=== PATIENT | female | born 1985 | race Caucasian/White ===

== ENCOUNTER 2016-03-04 12:18 | Emergency (ER) | payer SELFPAY ==
--- NOTE | 2016-03-04 12:56 | ER Document Report ---
ED Medical Screen (RME) - General Stated Complaint: ABDOMINAL PAIN Mode of Arrival: Ambulatory Information source: Patient Notes: 30-year-old female presents to the emergency department complaining of intermittently persistent upper abdominal pain over the last 2 weeks. Reports associated intermittent nausea. I have greeted and performed a rapid initial assessment of this patient. A comprehensive ED assessment and evaluation of the patient, analysis of test results and completion of the medical decision making process will be conducted by additional ED providers. TRAVEL OUTSIDE OF THE [place] IN LAST 30 DAYS: No - Related Data Allergies/Adverse Reactions: droperidol [Droperidol] Allergy (Intermediate, Verified 03/04/16 12:54) restlessness codeine [Codeine] Allergy (Verified 03/04/16 12:54) metoclopramide HCl [From Reglan] Allergy (Verified 03/04/16 12:54) prochlorperazine edisylate [From Compazine] Allergy (Verified 03/04/16 12:54) prochlorperazine maleate [From Compazine] Allergy (Verified 03/04/16 12:54) narcotics Adverse Reaction (Uncoded 12/09/14 15:13) Past Medical History - Social History Frequency of alcohol use: None Drug Abuse: None Family history: DM, Hypertension - Past Medical History Cardiac Medical History: Reports: Hx Hypertension Renal/ Medical History: Denies: Hx Peritoneal Dialysis Psychiatric Medical History: Reports: Hx Anxiety, Hx Depression - panic disorder Past Surgical History: Reports: Hx Adenoidectomy, Hx Myringotomy, Hx Tonsillectomy - Immunizations Immunizations up to date: No Hx Diphtheria, Pertussis, Tetanus Vaccination: Yes Physical Exam - Vital signs Vitals: Temp Pulse Resp BP Pulse Ox 98.3 F 101 H 21 H 135/74 H 97 03/04/16 12:41 03/04/16 12:41 03/04/16 12:41 03/04/16 12:41 03/04/16 12:41 - General General appearance: Appears well, Alert In distress: None Course - Vital Signs Vital signs: Temp Pulse Resp BP Pulse Ox 98.3 F 101 H 21 H 135/74 H 97 03/04/16 12:41 03/04/16 12:41 03/04/16 12:41 03/04/16 12:41 03/04/16 12:41
[2016-03-04 13:24] LABS: ABSOLUTE MONOCYTES (AUTO) 0.6 10^3/uL (0.1-1.4); ABSOLUTE NEUT (AUTO) 5.6 10^3/uL (1.7-8.2); BASOPHILS % (AUTO) 0.5 % (0-2); EOSINOPHILS % (AUTO) 0.5 % (0-6); LYMPHOCYTES % (AUTO) 24.1 % (13-45); MEAN CORPUSCULAR HEMOGLOBIN 27.4 pg (27.0-33.4); MEAN CORPUSCULAR HGB CONC 33.3 g/dL (32.0-36.0); MEAN CORPUSCULAR VOLUME 82 fl (80-97); RED BLOOD COUNT 4.74 10^6/uL (3.72-5.28); RED CELL DISTRIBUTION WIDTH 13.9 % (11.5-14.0); SEGMENTED NEUTROPHILS % (AUTO) 67.9 % (42-78); WHITE BLOOD COUNT 8.2 10^3/uL (4.0-10.5)
[2016-03-04 13:45] LABS: APPEARANCE,URINE SLIGHTLY-CLOUDY; BILIRUBIN,URINE NEGATIVE (NEGATIVE); GLUCOSE, URINE NEGATIVE (NEGATIVE); KETONES,URINE NEGATIVE (NEGATIVE); LEUKOCYTE ESTERASE,URINE LARGE (NEGATIVE); NITRITE,URINE NEGATIVE (NEGATIVE); PROTEIN,URINE NEGATIVE (NEGATIVE); URINE SPECIFIC GRAVITY 1.004; UROBILINOGEN,URINE NEGATIVE mg/dL (<2.0)
[2016-03-04 13:50] LABS: ALANINE AMINOTRANSFERASE 22 U/L (9-52); ALBUMIN 4.6 g/dL (3.5-5.0); ALKALINE PHOSPHATASE 71 U/L (38-126); ANION GAP 12 (5-19); ASPARTATE AMINO TRANSFERASE 23 U/L (14-36); BILIRUBIN,TOTAL 0.4 mg/dL (0.2-1.3); BLOOD UREA NITROGEN 10 mg/dL (7-20); CALCIUM 10.3 mg/dL (8.4-10.2); CARBON DIOXIDE 27 mmol/L (22-30); CHLORIDE 104 mmol/L (98-107); CREATININE RESULT 0.69 mg/dL (0.52-1.25); GLUCOSE 86 mg/dL (75-110); LIPASE 63.4 U/L (23-300); POTASSIUM 4.7 mmol/L (3.6-5.0); SODIUM 142.6 mmol/L (137-145); TOTAL PROTEIN 7.7 g/dL (6.3-8.2)
--- NOTE | 2016-03-04 14:41 | ER Document Report ---
Doctor's Note Notes: 03/04/16 14:15 Went to see patient in hallway bed. Patient had eloped after being seen in [facility].
--- NOTE | 2016-03-04 15:15 | ER Document Report ---
ED GI/ - General Time seen by provider: 15:30 Mode of Arrival: Ambulatory Information source: Patient TRAVEL OUTSIDE OF THE [place] IN LAST 30 DAYS: No - HPI Patient complains to provider of: Abdominal pain, Vomiting Onset: Other - see HPI Associated symptoms: Nausea, Vomiting, Other - migraine <NOHEMI CHENEY - Last Filed: 03/04/16 18:44> <ANGEL KENNEY - Last Filed: 03/04/16 22:46> - General Chief Complaint: Abdominal Pain Stated Complaint: ABDOMINAL PAIN Notes: Patient is a 30-year-old female presents emergency department with complaints of abdominal pain and nausea. Patient states that about 2 weeks ago she had some nausea and abdominal cramping with loose stool. Patient states that last night her adult pain was exacerbated and she felt very "flushed." Patient states that since she has been in the ER, the patient started vomiting and also has a migraine. Patient states that she has a migraine because she has been crying. Patient is concerned that she has a stomach ulcer. Patient has a history of hypertension, anxiety, and depression. (NOHEMI CHENEY) - Related Data Allergies/Adverse Reactions: droperidol [Droperidol] Allergy (Intermediate, Verified 03/04/16 12:54) restlessness codeine [Codeine] Allergy (Verified 03/04/16 12:54) metoclopramide HCl [From Reglan] Allergy (Verified 03/04/16 12:54) prochlorperazine edisylate [From Compazine] Allergy (Verified 03/04/16 12:54) prochlorperazine maleate [From Compazine] Allergy (Verified 03/04/16 12:54) narcotics Adverse Reaction (Uncoded 12/09/14 15:13) Past Medical History - General Information source: Patient - Social History Smoking Status: Never Smoker Cigarette use (# per day): No Chew tobacco use (# tins/day): No Frequency of alcohol use: None Drug Abuse: None Family History: Reviewed & Not Pertinent, CAD, COPD, DM, Hyperlipidemia, Hypertension Patient has suicidal ideation: No Patient has homicidal ideation: No - Past Medical History Cardiac Medical History: Reports: Hx Hypertension Psychiatric Medical History: Reports: Hx Anxiety, Hx Depression - panic disorder Past Surgical History: Reports: Hx Adenoidectomy, Hx Myringotomy, Hx Tonsillectomy - Immunizations Immunizations up to date: No Hx Diphtheria, Pertussis, Tetanus Vaccination: Yes <NOHEMI CHENEY - Last Filed: 03/04/16 18:44> Review of Systems - Review of Systems Constitutional: No symptoms reported EENT: No symptoms reported Cardiovascular: No symptoms reported Respiratory: No symptoms reported Gastrointestinal: See HPI, Abdominal pain, Diarrhea, Nausea, Vomiting Genitourinary: No symptoms reported Female Genitourinary: No symptoms reported Musculoskeletal: No symptoms reported Skin: No symptoms reported Hematologic/Lymphatic: No symptoms reported Neurological/Psychological: See HPI, Headaches -: Yes All other systems reviewed and negative <NOHEMI CHENEY - Last Filed: 03/04/16 18:44> Physical Exam - Vital signs Interpretation: Normal - General General appearance: Alert In distress: Mild - HEENT Head: Normocephalic, Atraumatic Eyes: Normal Pupils: PERRL Mucous membranes: Dry - Respiratory Respiratory status: No respiratory distress Chest status: Nontender Breath sounds: Normal Chest palpation: Normal - Cardiovascular Rhythm: Regular Heart sounds: Normal auscultation Murmur: No - Abdominal Inspection: Normal Distension: No distension Bowel sounds: Normal Tenderness: Tender - epigastric tenderness to palpation Organomegaly: No organomegaly - Back Back: Normal, Nontender - Extremities General upper extremity: Normal inspection, Normal ROM, Normal strength General lower extremity: Normal inspection, Normal ROM, Normal strength - Neurological Neuro grossly intact: Yes Cognition: Normal Orientation: AAOx4 [place] Coma Scale Eye Opening: Spontaneous Christopher Coma Scale Verbal: Oriented [place] Coma Scale Motor: Obeys Commands [place] Coma Scale Total: 15 Speech: Normal - Psychological Associated symptoms: Normal affect, Anxious, Tearful - Skin Skin Temperature: Warm Skin Moisture: Dry <NOHEMI CHENEY - Last Filed: 03/04/16 18:44> Course - Laboratory Result Diagrams: 03/04/16 13:10 03/04/16 13:10 <NOHEMI CHENEY - Last Filed: 03/04/16 18:44> - Laboratory Result Diagrams: 03/04/16 13:10 03/04/16 13:10 <ANGEL KENNEY - Last Filed: 03/04/16 22:46> - Re-evaluation Re-evalutation: 03/04/16 Patient's headache is improved after medications. A shunt has minimal epigastric tenderness to palpation. Patient only wants to take Tylenol and Zofran. She does not want anything else for pain, headache, or anxiety. Blood work within normal limits. Patient is feeling better like to go home. Will be given a prescription for Carafate. Follow-up with PMD. Return if any worsening or concerning symptoms. (ANGEL KENNEY) - Vital Signs Vital signs: Temp Pulse Resp BP Pulse Ox 97 F L 90 16 121/78 99 03/04/16 18:00 03/04/16 18:00 03/04/16 18:00 03/04/16 18:00 03/04/16 18:00 (NOHEMI CHENEY) (ANGEL KENNEY) - Laboratory Laboratory results interpreted by me: 03/04/16 03/04/16 13:10 13:10 Calcium 10.3 H Ur Leukocyte Esterase LARGE H (NOHEMI CHENEY) (ANGEL KENNEY) Discharge <NOHEMI CHENEY - Last Filed: 03/04/16 18:44> <ANGEL KENNEY - Last Filed: 03/04/16 22:46> - Discharge Clinical Impression: Epigastric pain Headache Qualifiers: Headache type: unspecified Headache chronicity pattern: unspecified pattern Intractability: not intractable Qualified Code(s): R51 - Headache Condition: Stable Disposition: HOME, SELF-CARE Instructions: Evaluation of Upper Abdominal Pain ([facility]), Headache ([facility]) Prescriptions: Ondansetron [Zofran Odt 4 mg Tablet] 4 mg PO Q4HP PRN #30 tab.rapdis PRN Reason: Sucralfate [Carafate 1 gm Tablet] 1 gm PO ACHS #30 tablet Forms: Return to Work Scribe Attestation: 03/04/16 22:46 I personally performed the services described in the documentation, reviewed and edited the documentation which was dictated to the scribe in my presence, and it accurately records my words and actions. (ANGEL KENNEY) Scribe Documentation - Scribe Written by Scribe:: Nohemi Cheney 03/04/16 16:48 acting as scribe for :: Massimo <NOHEMI CHENEY - Last Filed: 03/04/16 18:44>
[2016-03-04] MEDS ORDERED: FAMOTIDINE 20 MG TABLET PO ONE (15:48)
[2016-03-04] MEDS ORDERED: ONDANSETRON HCL INJ/PF 4 MG/2 ML SDV IV ONE (15:48)
[2016-03-04] MEDS ORDERED: ACETAMINOPHEN 325 MG TABLET PO ONE (15:48)
[2016-03-04] MEDS ORDERED: SUCRALFATE 1 GM TABLET PO ONE (15:48)
[2016-03-04] MEDS ORDERED: NORMAL SALINE 1000 ML 1,000 ML IV ONE (15:49)
[2016-03-04] MEDS ORDERED: ACETAMINOPHEN 325 MG TABLET ONE (16:17)
[2016-03-04] MEDS ORDERED: FAMOTIDINE INJ/PF 20 MG/2 ML SDV IV ONE (16:17)
[2016-03-04] MEDS ORDERED: ONDANSETRON HCL INJ/PF 4 MG/2 ML SDV ONE (16:18)
[2016-03-04 18:10] VITALS: BP 121/78
== END 2016-03-04 18:11 | disposition home or self-care (01) ==
LOC: ER 12:18
DX: R10.13 Epigastric pain (principal); R11.2 Nausea with vomiting, unspecified; R19.7 Diarrhea, unspecified; G43.909 Migraine, unspecified, not intractable, without status migrainosus; I10 Essential (primary) hypertension; R41.9 Unspecified symptoms and signs involving cognitive functions and awareness; Z88.5 Allergy status to narcotic agent; Z88.8 Allergy status to other drugs, medicaments and biological substances
CPT/HCPCS: 99284; 96361; 96374; 36415; 83690; 85025; 81025; 80053; 81001; J2405; J7030

== ENCOUNTER 2017-02-01 09:00 | Emergency (ER) | payer SELFPAY ==
[2017-02-01] MEDS ORDERED: NORMAL SALINE 1000 ML 1,000 ML IV ONE ×2 (09:46)
[2017-02-01] MEDS ORDERED: ONDANSETRON HCL INJ/PF 4 MG/2 ML SDV IV ONE (09:54)
[2017-02-01] MEDS ORDERED: DICYCLOMINE HCL 20 MG TABLET PO ONE (09:54)
[2017-02-01 10:39] LABS: ABSOLUTE EOSINOPHILS # (AUTO) 0.1 10^3/uL (0.0-0.6); ABSOLUTE LYMPHOCYTES (AUTO) 1.6 10^3/uL (0.5-4.7); ABSOLUTE MONOCYTES (AUTO) 0.4 10^3/uL (0.1-1.4); ABSOLUTE NEUT (AUTO) 3.4 10^3/uL (1.7-8.2); BASOPHILS % (AUTO) 0.7 % (0-2); EOSINOPHILS % (AUTO) 1.1 % (0-6); HEMATOCRIT 37.7 % (36.0-47.0); HEMOGLOBIN 12.7 g/dL (12.0-15.5); HGB HCT DIFFERENCE 0.4; LYMPHOCYTES % (AUTO) 29.5 % (13-45); MEAN CORPUSCULAR HEMOGLOBIN 27.5 pg (27.0-33.4); MEAN CORPUSCULAR HGB CONC 33.7 g/dL (32.0-36.0); MEAN CORPUSCULAR VOLUME 82 fl (80-97); MONOCYTES % (AUTO) 7.1 % (3-13); RED BLOOD COUNT 4.62 10^6/uL (3.72-5.28); RED CELL DISTRIBUTION WIDTH 13.9 % (11.5-14.0); SEGMENTED NEUTROPHILS % (AUTO) 61.6 % (42-78); WHITE BLOOD COUNT 5.5 10^3/uL (4.0-10.5)
[2017-02-01 11:03] LABS: ALANINE AMINOTRANSFERASE 25 U/L (9-52); ALBUMIN 4.5 g/dL (3.5-5.0); ALKALINE PHOSPHATASE 74 U/L (38-126); ANION GAP 12 (5-19); ASPARTATE AMINO TRANSFERASE 19 U/L (14-36); BILIRUBIN,DIRECT 0.2 mg/dL (0.0-0.4); BILIRUBIN,TOTAL 0.2 mg/dL (0.2-1.3); BLOOD UREA NITROGEN 8 mg/dL (7-20); CALCIUM 10.2 mg/dL (8.4-10.2); CARBON DIOXIDE 25 mmol/L (22-30); CHLORIDE 105 mmol/L (98-107); CREATININE RESULT 0.65 mg/dL (0.52-1.25); GLUCOSE 99 mg/dL (75-110); LIPASE 87.5 U/L (23-300); POTASSIUM 4.7 mmol/L (3.6-5.0); SODIUM 141.5 mmol/L (137-145); TOTAL PROTEIN 7.3 g/dL (6.3-8.2)
[2017-02-01 11:25] LABS: APPEARANCE,URINE SLIGHTLY-CLOUDY; BILIRUBIN,URINE NEGATIVE (NEGATIVE); GLUCOSE, URINE NEGATIVE (NEGATIVE); KETONES,URINE NEGATIVE (NEGATIVE); LEUKOCYTE ESTERASE,URINE TRACE (NEGATIVE); NITRITE,URINE NEGATIVE (NEGATIVE); PROTEIN,URINE NEGATIVE (NEGATIVE); URINE SPECIFIC GRAVITY 1.012; UROBILINOGEN,URINE NEGATIVE mg/dL (<2.0)
--- NOTE | 2017-02-01 11:45 | ER Document Report ---
ED General - General Chief Complaint: Abdominal Pain Stated Complaint: ABDOMINAL PAIN Time Seen by Provider: 02/01/17 09:45 TRAVEL OUTSIDE OF THE [place] IN LAST 30 DAYS: No - HPI Patient complains to provider of: Abdominal pain Notes: Patient coming in for evaluation of abdominal pain. Patient states last few days she had nausea vomiting diarrhea was getting over the GI bug states that she was able to tolerate paige [employer] ice cream then progressed to eat a piece last night when she developed more abdominal pain. Patient otherwise resting comfortably upon my evaluation patient is unaware of her status. Patient denies any recent travel denies any recent antibiotics. - Related Data Allergies/Adverse Reactions: droperidol [Droperidol] Allergy (Intermediate, Verified 02/01/17 11:23) restlessness codeine [Codeine] Allergy (Verified 02/01/17 11:23) metoclopramide HCl [From Reglan] Allergy (Verified 02/01/17 11:23) prochlorperazine edisylate [From Compazine] Allergy (Verified 02/01/17 11:23) prochlorperazine maleate [From Compazine] Allergy (Verified 02/01/17 11:23) narcotics Adverse Reaction (Uncoded 02/01/17 11:23) Home Medications: Current Home Medications Diltiazem HCl [Cardizem 30 mg Tablet] 30 mg PO DAILY 02/01/17 [History] Lorazepam [Ativan 1 mg Tablet] 1 mg PO PRN PRN 02/01/17 [History] Sertraline HCl [Zoloft 50 mg Tablet] 50 mg PO DAILY 02/01/17 [History] Past Medical History - Social History Smoking Status: Never Smoker Chew tobacco use (# tins/day): No Frequency of alcohol use: None Drug Abuse: None Family History: Reviewed & Not Pertinent, CAD, COPD, DM, Hyperlipidemia, Hypertension Patient has suicidal ideation: No Patient has homicidal ideation: No - Past Medical History Cardiac Medical History: Reports: Hx Hypertension Renal/ Medical History: Denies: Hx Peritoneal Dialysis Psychiatric Medical History: Reports: Hx Anxiety, Hx Depression - panic disorder Past Surgical History: Reports: Hx Adenoidectomy, Hx Myringotomy, Hx Tonsillectomy - Immunizations Immunizations up to date: No Hx Diphtheria, Pertussis, Tetanus Vaccination: Yes Review of Systems - Review of Systems Constitutional: No symptoms reported EENT: No symptoms reported Cardiovascular: No symptoms reported Respiratory: No symptoms reported Gastrointestinal: Abdominal pain, Diarrhea, Nausea, Vomiting Genitourinary: No symptoms reported Female Genitourinary: No symptoms reported Musculoskeletal: No symptoms reported Skin: No symptoms reported Hematologic/Lymphatic: No symptoms reported Neurological/Psychological: No symptoms reported -: Yes All other systems reviewed and negative Physical Exam - Vital signs Vitals: Temp Pulse Resp BP Pulse Ox 99.3 F 101 H 18 137/79 H 98 02/01/17 09:18 02/01/17 09:18 02/01/17 09:18 02/01/17 09:18 02/01/17 09:18 Interpretation: Normal - General General appearance: Appears well, Alert - HEENT Head: Normocephalic, Atraumatic Eyes: Normal Pupils: PERRL - Respiratory Respiratory status: No respiratory distress Chest status: Nontender Breath sounds: Normal Chest palpation: Normal - Cardiovascular Rhythm: Regular Heart sounds: Normal auscultation Murmur: No - Abdominal Inspection: Normal Distension: No distension Bowel sounds: Normal Tenderness: Nontender Organomegaly: No organomegaly - Back Back: Normal, Nontender - Extremities General upper extremity: Normal inspection, Nontender, Normal color, Normal ROM , Normal temperature General lower extremity: Normal inspection, Nontender, Normal color, Normal ROM , Normal temperature, Normal weight bearing. No: Yamilet's sign - Neurological Neuro grossly intact: Yes Cognition: Normal Orientation: AAOx4 [place] Coma Scale Eye Opening: Spontaneous [place] Coma Scale Verbal: Oriented [place] Coma Scale Motor: Obeys Commands [place] Coma Scale Total: 15 Speech: Normal Motor strength normal: LUE, RUE, LLE, RLE Sensory: Normal - Psychological Associated symptoms: Normal affect, Normal mood - Skin Skin Temperature: Warm Skin Moisture: Dry Skin Color: Normal Course - Re-evaluation Re-evalutation: 02/01/17 11:42 The patient presents with abdominal pain without signs of peritonitis or other life-threatening or serious etiology. The patient appears stable for discharge and has been instructed to return immediately if the symptoms worsen in any way , or in 8-12hr if not improved for re-evaluation. The patient has been instructed to return if the symptoms worsen or change in any way. - Vital Signs Vital signs: Temp Pulse Resp BP Pulse Ox 98.4 F 75 18 132/76 H 100 02/01/17 12:27 02/01/17 12:27 02/01/17 12:27 02/01/17 12:27 02/01/17 12:27 - Laboratory Result Diagrams: 02/01/17 10:15 02/01/17 10:15 Laboratory results interpreted by me: 02/01/17 10:15 Urine Blood SMALL H Ur Leukocyte Esterase TRACE H Discharge - Discharge Clinical Impression: Abdominal pain Qualifiers: Abdominal location: unspecified location Qualified Code(s): R10.9 - Unspecified abdominal pain Condition: Good Disposition: HOME, SELF-CARE Instructions: Abdominal Pain ([facility]), Antispasmodics ([facility]) Additional Instructions: Your laboratory studies and urinalysis did not show any signs of significant infection. More likely the etiology of your abdominal pains due to a virus. I recommend eating a very bland diet for the next few days. Avoid foods high in grease fat or oil content. He may take Tylenol Motrin for pain. I will also prescribe Bentyl for your pain. Take nausea medication as needed for any nausea. Make sure that you are drinking plenty of fluids to stay hydrated return to ER if symptoms worsen or follow-up your primary care physician Prescriptions: Dicyclomine HCl [Bentyl 20 mg Tablet] 20 mg PO QID PRN #40 tablet PRN Reason: Ondansetron [Zofran Odt 4 mg Tablet] 1 - 2 tab PO Q4H PRN #30 tab.rapdis PRN Reason: For Nausea/Vomiting Forms: Return to Work
[2017-02-01 12:27] VITALS: BP 132/76
== END 2017-02-01 12:27 | disposition home or self-care (01) ==
LOC: ER 09:00
DX: R10.9 Unspecified abdominal pain (principal); R11.2 Nausea with vomiting, unspecified; R19.7 Diarrhea, unspecified; Z79.899 Other long term (current) drug therapy
CPT/HCPCS: 99284; 96361; 96374; 36415; 83690; 85025; 81025; 80053; 81001; J3490; J2405; J7030

== ENCOUNTER 2017-03-14 16:22 | Emergency (ER) | payer SELFPAY ==
--- NOTE | 2017-03-14 17:38 | ER Document Report ---
ED Medical Screen (RME) - General Chief Complaint: Chest Pain Stated Complaint: BACK PAIN, SHORNESS OF BREATH Time Seen by Provider: 03/14/17 17:35 Mode of Arrival: Ambulatory Information source: Patient TRAVEL OUTSIDE OF THE [place] IN LAST 30 DAYS: No - HPI Notes: 03/14/17 17:37 Patient complains of chest pain in her left mid chest area that wraps around her back. It is worse with deep inspiration. She denies any trauma to the area. She states it is associated with shortness of breath. She denies any history of blood clots, leg swelling, OR extensive travel in a car plane. She has had no fever nausea vomiting diarrhea or flulike symptoms. - Related Data Allergies/Adverse Reactions: droperidol [Droperidol] Allergy (Intermediate, Verified 02/01/17 11:23) restlessness codeine [Codeine] Allergy (Verified 02/01/17 11:23) metoclopramide HCl [From Reglan] Allergy (Verified 02/01/17 11:23) prochlorperazine edisylate [From Compazine] Allergy (Verified 02/01/17 11:23) prochlorperazine maleate [From Compazine] Allergy (Verified 02/01/17 11:23) narcotics Adverse Reaction (Uncoded 02/01/17 11:23) Past Medical History - Social History Chew tobacco use (# tins/day): No Frequency of alcohol use: None Drug Abuse: None Family history: DM, Hypertension - Past Medical History Cardiac Medical History: Reports: Hx Hypertension Renal/ Medical History: Denies: Hx Peritoneal Dialysis Psychiatric Medical History: Reports: Hx Anxiety, Hx Depression - panic disorder Past Surgical History: Reports: Hx Adenoidectomy, Hx Myringotomy, Hx Tonsillectomy - Immunizations Immunizations up to date: No Hx Diphtheria, Pertussis, Tetanus Vaccination: Yes Physical Exam - Vital signs Vitals: Temp Pulse Resp BP Pulse Ox 98.6 F 85 18 133/74 H 96 03/14/17 16:46 03/14/17 16:46 03/14/17 16:46 03/14/17 16:46 03/14/17 16:46 Course - Vital Signs Vital signs: Temp Pulse Resp BP Pulse Ox 98.6 F 85 18 133/74 H 96 03/14/17 16:46 03/14/17 16:46 03/14/17 16:46 03/14/17 16:46 03/14/17 16:46
[2017-03-14 18:17] LABS: ABSOLUTE BASOPHILS # (AUTO) 0.1 10^3/uL (0.0-0.2); ABSOLUTE EOSINOPHILS # (AUTO) 0.1 10^3/uL (0.0-0.6); ABSOLUTE LYMPHOCYTES (AUTO) 2.5 10^3/uL (0.5-4.7); ABSOLUTE MONOCYTES (AUTO) 0.4 10^3/uL (0.1-1.4); ABSOLUTE NEUT (AUTO) 6.6 10^3/uL (1.7-8.2); BASOPHILS % (AUTO) 0.6 % (0-2); EOSINOPHILS % (AUTO) 0.6 % (0-6); HEMATOCRIT 38.6 % (36.0-47.0); HEMOGLOBIN 12.9 g/dL (12.0-15.5); LYMPHOCYTES % (AUTO) 26.3 % (13-45); MEAN CORPUSCULAR HEMOGLOBIN 26.9 pg (27.0-33.4); MEAN CORPUSCULAR HGB CONC 33.3 g/dL (32.0-36.0); MEAN CORPUSCULAR VOLUME 81 fl (80-97); MONOCYTES % (AUTO) 3.9 % (3-13); PLATELET COUNT 388 10^3/uL (150-450); RED BLOOD COUNT 4.78 10^6/uL (3.72-5.28); RED CELL DISTRIBUTION WIDTH 14.4 % (11.5-14.0); SEGMENTED NEUTROPHILS % (AUTO) 68.6 % (42-78); TOTAL CELLS COUNTED % (AUTO) 100 %; WHITE BLOOD COUNT 9.6 10^3/uL (4.0-10.5)
--- NOTE | 2017-03-14 18:32 | RADIOLOGY REPORT (SQ) ---
EXAM DESCRIPTION: CHEST PA/LAT COMPLETED DATE/TIME: 03/14/2017 6:19 pm REASON FOR STUDY: CHEST PAIN COMPARISON: 12/09/2014. EXAM PARAMETERS: NUMBER OF VIEWS: two views TECHNIQUE: Digital Frontal and Lateral radiographic views of the chest acquired. RADIATION DOSE: NA LIMITATIONS: none FINDINGS: LUNGS AND PLEURA: No opacities, masses or pneumothorax. No pleural effusion. MEDIASTINUM AND HILAR STRUCTURES: No masses or contour abnormalities. HEART AND VASCULAR STRUCTURES: Heart normal size. No evidence for failure. BONES: No acute findings. HARDWARE: None in the chest. OTHER: No other significant finding. IMPRESSION: NO SIGNIFICANT RADIOGRAPHIC FINDING IN THE CHEST. TECHNICAL DOCUMENTATION: JOB ID: [id number] [employer]- All Rights Reserved
[2017-03-14 18:34] LABS: ANION GAP 13 (5-19); BLOOD UREA NITROGEN 10 mg/dL (7-20); CALCIUM 10.6 mg/dL (8.4-10.2); CARBON DIOXIDE 26 mmol/L (22-30); CHLORIDE 102 mmol/L (98-107); GLUCOSE 91 mg/dL (75-110); POTASSIUM 4.5 mmol/L (3.6-5.0); SODIUM 140.7 mmol/L (137-145)
--- NOTE | 2017-03-14 18:47 | EKG REPORT ---
SEVERITY:- ABNORMAL ECG - SINUS RHYTHM NONSPECIFIC T ABNORMALITIES, INFERIOR LEADS : Confirmed by: Silviano Pennington MD 14-Mar-2017 18:47:15
--- NOTE | 2017-03-14 19:09 | ER Document Report ---
ED General - General Mode of Arrival: Ambulatory Information source: Patient TRAVEL OUTSIDE OF THE [place] IN LAST 30 DAYS: No <IRINA TRUONG - Last Filed: 03/14/17 21:09> <ANGEL KENNEY - Last Filed: 03/15/17 04:22> - General Chief Complaint: Chest Pain Stated Complaint: BACK PAIN, SHORNESS OF BREATH Time Seen by Provider: 03/14/17 17:35 Notes: Patient is a 31-year-old female who presents to the emergency department today with complaints of reproducible left shoulder blade and left sided chest wall pain for the last 2 days. Patient states she noticed her symptoms after walking her children to school. Patient states she is right-handed. Patient states it hurts to move in certain directions. Patient denies any history of PE /DVT, radiation of pain down her arm or neck, or early cardiac disease in her family. (IRINA TRUONG) - Related Data Allergies/Adverse Reactions: droperidol [Droperidol] Allergy (Intermediate, Verified 02/01/17 11:23) restlessness codeine [Codeine] Allergy (Verified 02/01/17 11:23) metoclopramide HCl [From Reglan] Allergy (Verified 02/01/17 11:23) prochlorperazine edisylate [From Compazine] Allergy (Verified 02/01/17 11:23) prochlorperazine maleate [From Compazine] Allergy (Verified 02/01/17 11:23) narcotics Adverse Reaction (Uncoded 02/01/17 11:23) Past Medical History - General Information source: Patient - Social History Smoking Status: Current Every Day Smoker - vape Cigarette use (# per day): No Chew tobacco use (# tins/day): No Frequency of alcohol use: None Drug Abuse: None Lives with: Family Family History: Reviewed & Not Pertinent, CAD, COPD, DM, Hyperlipidemia, Hypertension Patient has suicidal ideation: No Patient has homicidal ideation: No - Past Medical History Cardiac Medical History: Reports: Hx Hypertension Psychiatric Medical History: Reports: Hx Anxiety, Hx Depression - panic disorder Past Surgical History: Reports: Hx Adenoidectomy, Hx Myringotomy, Hx Tonsillectomy - Immunizations Immunizations up to date: No Hx Diphtheria, Pertussis, Tetanus Vaccination: Yes <IRINA TRUONG - Last Filed: 03/14/17 21:09> Review of Systems - Review of Systems Constitutional: No symptoms reported EENT: No symptoms reported Cardiovascular: See HPI, Chest pain Respiratory: No symptoms reported, Hurts to breathe - hurts to move Gastrointestinal: No symptoms reported Genitourinary: No symptoms reported Female Genitourinary: No symptoms reported Musculoskeletal: See HPI, Joint pain - left shoulder pain Skin: No symptoms reported Hematologic/Lymphatic: No symptoms reported Neurological/Psychological: No symptoms reported -: Yes All other systems reviewed and negative <IRINA TRUONG - Last Filed: 03/14/17 21:09> Physical Exam <IRINA TRUONG - Last Filed: 03/14/17 21:09> <ANGEL KENNEY - Last Filed: 03/15/17 04:22> - Vital signs Vitals: Temp Pulse Resp BP Pulse Ox 98.6 F 85 18 133/74 H 96 03/14/17 16:46 03/14/17 16:46 03/14/17 16:46 03/14/17 16:46 03/14/17 16:46 - Notes Notes: Physical Exam: General: Alert, appears well. HEENT: Normocephalic. Atraumatic. PERRL. Extraocular movements intact. Oropharynx clear. Neck: Supple. Non-tender. Respiratory: No respiratory distress. Clear and equal breath sounds bilaterally. Cardiovascular: Regular rate and rhythm. Abdominal: Normal Inspection. Non-tender. No distension. Normal Bowel Sounds. Back: Reproducible left upper back pain. No deformity or step off. Extremities: Moves all four extremities. Upper extremities: Normal inspection. Normal ROM. Lower extremities: Normal inspection. No edema. Normal ROM. Neurological: Normal cognition. AAOx4. Normal speech. Psychological: Anxious Skin: Warm. Dry. Normal color. (IRINA TRUONG) Course - Laboratory Result Diagrams: 03/14/17 17:54 03/14/17 17:54 <IRINA TRUONG - Last Filed: 03/14/17 21:09> - Laboratory Result Diagrams: 03/14/17 17:54 03/14/17 17:54 <ANGEL KENNEY - Last Filed: 03/15/17 04:22> - Re-evaluation Re-evalutation: Patient has chest pain that is worse with movement. No acute findings on blood work or chest x-ray. EKG within normal limits. D-dimer negative. Patient will be discharged home and is to follow-up with her doctor. Return if any worsening or concerning symptoms. Stable for discharge. (ANGEL KENNEY ) - Vital Signs Vital signs: Temp Pulse Resp BP Pulse Ox 98.6 F 85 13 124/71 100 03/14/17 16:46 03/14/17 16:46 03/14/17 20:01 03/14/17 20:01 03/14/17 20:01 - Laboratory Laboratory results interpreted by me: 03/14/17 03/14/17 17:54 17:54 MCH 26.9 L RDW 14.4 H Calcium 10.6 H Discharge <IRINA TRUONG - Last Filed: 03/14/17 21:09> <ANGEL KENNEY - Last Filed: 03/15/17 04:22> - Discharge Clinical Impression: Atypical chest pain, Muscle strain Condition: Stable Disposition: HOME, SELF-CARE Instructions: Chest Pain of Unclear Cause ([facility]), Muscle Strain ([facility]) Referrals: JED GOMEZ MD [Primary Care Provider] - Follow up as needed Scribe Attestation: 03/15/17 04:22 I personally performed the services described in the documentation, reviewed and edited the documentation which was dictated to the scribe in my presence, and it accurately records my words and actions. (ANGEL KENNEY) Scribe Documentation - Scribe Written by Ehibamee:: Darryl Martínez, 03/14/20172002 acting as scribe for :: Massimo <IRINA TRUONG - Last Filed: 03/14/17 21:09>
[2017-03-14 20:37] VITALS: BP 124/71
== END 2017-03-14 20:35 | disposition home or self-care (01) ==
LOC: ER 16:22
DX: S46.912A Strain of unspecified muscle, fascia and tendon at shoulder and upper arm level, left arm, initial encounter (principal); R07.9 Chest pain, unspecified; M54.9 Dorsalgia, unspecified; R06.02 Shortness of breath; M25.512 Pain in left shoulder; R07.89 Other chest pain; F17.200 Nicotine dependence, unspecified, uncomplicated; X58.XXXA Exposure to other specified factors, initial encounter
CPT/HCPCS: 36415; 71046; 80048; 81025; 84484; 85025; 85379; 93005; 93010; 99285

== ENCOUNTER 2019-02-15 18:32 | Emergency (ER) | payer SELFPAY ==
[2019-02-15 18:45] VITALS: BP 152/92
[2019-02-15] MEDS ORDERED: ACETAMINOPHEN 325 MG TABLET PO ONE (19:33)
--- NOTE | 2019-02-15 19:33 | ER Document Report ---
HPI - HPI Time Seen by Provider: 02/15/19 19:31 Notes: 33-year-old female complaining of right knee pain. Denies any specific injury. States pain started a few days ago. Has tried taking Tylenol and Motrin at home without relief. - REPRODUCTIVE Reproductive: DENIES: : Past Medical History - General Information source: Patient - Social History Smoking Status: Never Smoker Frequency of alcohol use: None Drug Abuse: None Family History: Reviewed & Not Pertinent, CAD, COPD, DM, Hyperlipidemia, Hypertension - Past Medical History Cardiac Medical History: Reports: Hx Hypertension Renal/ Medical History: Denies: Hx Peritoneal Dialysis Psychiatric Medical History: Reports: Hx Anxiety, Hx Depression - panic disorder Past Surgical History: Reports: Hx Adenoidectomy, Hx Myringotomy, Hx Tonsillectomy - Immunizations Immunizations up to date: No Hx Diphtheria, Pertussis, Tetanus Vaccination: Yes Vertical Provider Document - CONSTITUTIONAL Notes: PHYSICAL EXAMINATION: GENERAL: Well-appearing, well-nourished and in no acute distress. HEAD: Atraumatic, normocephalic. EYES: Pupils equal round extraocular movements intact, conjunctiva are normal. ENT: Nares patent NECK: Normal range of motion LUNGS: No respiratory distress Musculoskeletal: Normal range of motion to right knee, strong popliteal pulse, mild swelling, no erythema or heat noted. Normal sensation distally. NEUROLOGICAL: Normal speech, normal gait. PSYCH: Normal mood, normal affect. SKIN: Warm, Dry, normal turgor, no rashes or lesions noted. - INFECTION CONTROL TRAVEL OUTSIDE OF THE [place] IN LAST 30 DAYS: No Course - Re-evaluation Re-evalutation: Knee X-Ray 02/15/19 19:33 IMPRESSION: There are no acute bony findings in the right knee. - Vital Signs Vital signs: Temp Pulse Resp BP Pulse Ox 98.6 F 79 16 152/92 H 98 02/15/19 18:44 02/15/19 18:44 02/15/19 18:44 02/15/19 18:44 02/15/19 18:44 Procedures - Immobilization Right knee Pre-Proc Neuro Vasc Exam: Normal Immobilizer type: Crutches, Knee immobilizer Performed by: PCT Post-Proc Neuro Vasc Exam: Normal Discharge - Discharge Clinical Impression: Right knee pain Qualifiers: Chronicity: acute Qualified Code(s): M25.561 - Pain in right knee Condition: Stable Disposition: HOME, SELF-CARE Instructions: Sprained Knee ([facility]) Additional Instructions: X-ray taken of your knee was negative. Use the knee immobilizer anytime after be up and about. When you are resting at home movement of the knee immobilizer, apply ice to the knee, elevate as much as necessary. Please take Tylenol and ibuprofen for pain. If your pain does not start getting better over the next 3 to 5 days please consider following up with orthopedics, I have given you the phone number for 2 different orthopedic groups here in [place]. Forms: Return to Work Referrals: CHUCK BLOUNT JR, [ACTIVE PROVISIONAL STAFF] - Follow up as needed NALLELY AMADOR MD [ACTIVE STAFF] - Follow up as needed
--- NOTE | 2019-02-15 20:43 | RADIOLOGY REPORT (SQ) ---
EXAM DESCRIPTION: X-RAY right Knee CLINICAL HISTORY: Pain COMPARISON: None TECHNIQUE: Four views of the right knee joint. FINDINGS: There is no evidence of acute fractures or dislocations involving the bones of the right knee joint. There is no evidence of a suprapatellar joint effusion. The joint spaces are well maintained. There are no periosteal reactions involving the bones of the right knee joint. The adjacent soft tissues are unremarkable. IMPRESSION: There are no acute bony findings in the right knee.
== END 2019-02-15 21:33 | disposition home or self-care (01) ==
LOC: ER 18:32
DX: M25.561 Pain in right knee (principal); I10 Essential (primary) hypertension
CPT/HCPCS: 99283; 73564; L1830

== ENCOUNTER 2019-04-21 09:25 | Emergency (ER) | payer OTHER, MEDICAID ==
[2019-04-21 10:06] VITALS: BP 134/77
[2019-04-21] MEDS ORDERED: KETOROLAC TROMETHAMINE 60 MG/2 ML SDV IM ONE (10:47)
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
== END 2019-04-21 11:12 | disposition home or self-care (01) ==
LOC: ER 09:25
DX: S16.1XXA Strain of muscle, fascia and tendon at neck level, initial encounter (principal); M79.18 Myalgia, other site; V49.40XA Driver injured in collision with unspecified motor vehicles in traffic accident, initial encounter; I10 Essential (primary) hypertension; Z87.891 Personal history of nicotine dependence; Z88.8 Allergy status to other drugs, medicaments and biological substances; Z88.6 Allergy status to analgesic agent; Z88.5 Allergy status to narcotic agent
CPT/HCPCS: 99283; 96372; J1885